=== PATIENT | female | born 1955 | race Two or more races ===

== ENCOUNTER 2017-12-29 13:23 | Outpatient (CLI) | payer OTHER ==
[~2017-12-29 13:23] MED LIST: DURICEF 500 MG CAPSULE PO; EMETROL; NORFLEX100 MG; OMEGA-31000 MG; OXYC1TAB9 PO; PREVACID15 MG; SINGULAIR10 MG PO
== END 2017-12-29 13:35 | disposition home or self-care (01) ==
LOC: LAB 13:23 → MAMO-SONO 01-06 07:45
DX: R31.0 Gross hematuria (principal)

== ENCOUNTER 2018-02-10 08:23 | Outpatient (CLI) | payer OTHER | END 2018-02-10 08:43 | disposition home or self-care (01) | LOC: MRI 08:23 | DX: M51.9 Unspecified thoracic, thoracolumbar and lumbosacral intervertebral disc disorder (principal) | CPT/HCPCS: 72148 ==

== ENCOUNTER 2018-04-18 07:22 | Outpatient (CLI) | payer OTHER | END 2018-04-18 07:32 | disposition home or self-care (01) | LOC: TOM 07:22 | DX: R10.84 Generalized abdominal pain (principal) ==

== ENCOUNTER → 2018-04-28 | Outpatient (CLI) | payer OTHER | END | disposition home or self-care (01) | LOC: NUCLEAR 09:53 | DX: M81.0 Age-related osteoporosis without current pathological fracture (principal) ==

== ENCOUNTER → 2018-05-05 06:45 | Outpatient (CLI) | payer OTHER | END | disposition home or self-care (01) | LOC: LAB 06:45 | DX: E03.8 Other specified hypothyroidism (principal); R10.13 Epigastric pain; I11.9 Hypertensive heart disease without heart failure; E78.2 Mixed hyperlipidemia ==

== ENCOUNTER → 2018-06-14 | Outpatient (CLI) | payer OTHER | END | disposition home or self-care (01) | LOC: SONOGRAMA 07:12 → MAMO-SONO 08:15 | DX: M25.562 Pain in left knee (principal); S46.001A Unspecified injury of muscle(s) and tendon(s) of the rotator cuff of right shoulder, initial encounter; M50.80 Other cervical disc disorders, unspecified cervical region ==

== ENCOUNTER 2018-10-17 08:19 | Outpatient (CLI) | payer OTHER | END 2018-10-17 08:24 | disposition home or self-care (01) | LOC: LAB 08:19 | DX: D46.4 Refractory anemia, unspecified (principal); D63.1 Anemia in chronic kidney disease; D50.8 Other iron deficiency anemias ==

== ENCOUNTER 2019-03-20 08:37 | Outpatient (CLI) | payer OTHER | END 2019-03-20 08:38 | disposition home or self-care (01) | LOC: NUCLEAR 08:37 | DX: E03.8 Other specified hypothyroidism (principal) | CPT/HCPCS: 78012; A9531 ==

== ENCOUNTER 2019-03-21 07:27 | Outpatient (CLI) | payer OTHER | END 2019-03-21 09:10 | disposition home or self-care (01) | LOC: MRI 07:27 | DX: M51.9 Unspecified thoracic, thoracolumbar and lumbosacral intervertebral disc disorder (principal); M17.9 Osteoarthritis of knee, unspecified | CPT/HCPCS: 72148 ==

== ENCOUNTER 2019-03-21 10:37 | Outpatient (CLI) | payer OTHER | END 2019-03-21 10:40 | disposition home or self-care (01) | LOC: SONOGRAMA 10:37 | DX: E05.80 Other thyrotoxicosis without thyrotoxic crisis or storm (principal) ==

== ENCOUNTER 2020-02-07 07:18 | Outpatient (CLI) | payer OTHER | END 2020-02-07 07:23 | disposition home or self-care (01) | LOC: RAD 07:18 | PROVIDERS: ATTEND Orthopaedic Surgery Sports Medicine | DX: M17.12 Unilateral primary osteoarthritis, left knee (principal); M18.2 Bilateral post-traumatic osteoarthritis of first carpometacarpal joints ==

== ENCOUNTER 2020-02-14 08:58 | Inpatient (IN) | payer OTHER ==
[~2020-02-14] VITALS: Ht 154.9 cm; Wt 71.2 kg
[2020-02-14] MEDS ORDERED: [UNRECOGNIZED DRUG - OTHER] (09:42)
[2020-02-14] MEDS ORDERED: DIOVAN HCT 1601 EACH (09:42)
[2020-02-14] MEDS ORDERED: GLIMEPIRIDE4 MG (09:43)
[2020-02-14] MEDS ORDERED: PEPCID AC10 MG (09:44)
[2020-02-14] MEDS ORDERED: ADVIAR (09:46)
[2020-02-14] MEDS ORDERED: SINGULAIR 10MG10 MG (09:46)
[2020-02-14] MEDS ORDERED: [UNRECOGNIZED DRUG - OTHER] (09:47)
== END 2020-02-16 12:56 | disposition home or self-care (01) | DRG 812 ==
LOC: ER 08:58 → MEDJ 18:00
PROVIDERS: ADMIT Internal Medicine Cardiovascular Disease; ATTEND Internal Medicine Cardiovascular Disease
PROC: 30233N1 Transfusion of Nonautologous Red Blood Cells into Peripheral Vein, Percutaneous Approach (ICD-10-PCS; principal; 2020-02-14)
PROC: 3E0F7GC Introduction of Other Therapeutic Substance into Respiratory Tract, Via Natural or Artificial Opening (ICD-10-PCS; 2020-02-14)
DX: D64.9 Anemia, unspecified (principal); J45.42 Moderate persistent asthma with status asthmaticus; Z79.52 Long term (current) use of systemic steroids

== ENCOUNTER 2020-03-05 08:20 | Outpatient (CLI) | payer OTHER ==
[~2020-03-05 08:20] MED LIST changes: +ADVIAR; +DIOVAN HCT 1601 EACH; +GLIMEPIRIDE4 MG; +PEPCID AC10 MG; +SINGULAIR 10MG10 MG; +[UNRECOGNIZED DRUG - OTHER]; +[UNRECOGNIZED DRUG - OTHER]
== END 2020-03-05 08:22 | disposition home or self-care (01) ==
LOC: RAD 08:20 → MAMO-SONO 09:45
PROVIDERS: ATTEND Internal Medicine Hematology & Oncology
DX: D50.8 Other iron deficiency anemias (principal)

== ENCOUNTER 2020-04-30 07:29 | Outpatient (CLI) | payer OTHER | END 2020-04-30 07:38 | disposition home or self-care (01) | LOC: MAMO-SONO 07:29 | PROVIDERS: ATTEND Internal Medicine Hematology & Oncology | DX: Z12.31 Encounter for screening mammogram for malignant neoplasm of breast (principal); N64.59 Other signs and symptoms in breast ==

== ENCOUNTER → 2020-07-10 08:16 | Outpatient (CLI) | payer OTHER | END | disposition home or self-care (01) | LOC: LAB 08:16 | PROVIDERS: ATTEND Internal Medicine Hematology & Oncology | DX: N39.0 Urinary tract infection, site not specified (principal); B96.29 Other Escherichia coli [E. coli] as the cause of diseases classified elsewhere; D50.8 Other iron deficiency anemias; I10 Essential (primary) hypertension; R74.02 Elevation of levels of lactic acid dehydrogenase [LDH]; D63.8 Anemia in other chronic diseases classified elsewhere; D55.0 Anemia due to glucose-6-phosphate dehydrogenase [G6PD] deficiency; D51.1 Vitamin B12 deficiency anemia due to selective vitamin B12 malabsorption with proteinuria; D51.0 Vitamin B12 deficiency anemia due to intrinsic factor deficiency; E03.8 Other specified hypothyroidism; R97.0 Elevated carcinoembryonic antigen [CEA]; R97.8 Other abnormal tumor markers; E06.3 Autoimmune thyroiditis; D51.3 Other dietary vitamin B12 deficiency anemia; E11.9 Type 2 diabetes mellitus without complications; D63.1 Anemia in chronic kidney disease ==

== ENCOUNTER → 2020-08-11 | Outpatient (CLI) | payer OTHER | END | disposition home or self-care (01) | LOC: MAMO-SONO 07:15 → SONOGRAMA 07:48 | PROVIDERS: ATTEND Specialist | DX: R10.2 Pelvic and perineal pain (principal); R10.31 Right lower quadrant pain ==

== ENCOUNTER 2020-08-13 11:53 | Outpatient (CLI) | payer OTHER | END 2020-08-13 12:05 | disposition HB | LOC: RAD 11:53 | PROVIDERS: ATTEND Internal Medicine Rheumatology | DX: M51.87 Other intervertebral disc disorders, lumbosacral region (principal) ==

== ENCOUNTER 2020-09-01 08:07 | Outpatient (CLI) | payer OTHER | END 2020-09-01 09:00 | disposition home or self-care (01) | LOC: MRI 08:07 | PROVIDERS: ATTEND Anesthesiology | DX: M48.07 Spinal stenosis, lumbosacral region (principal); M17.12 Unilateral primary osteoarthritis, left knee; M51.36 Other intervertebral disc degeneration, lumbar region; M23.207 Derangement of unspecified meniscus due to old tear or injury, left knee | CPT/HCPCS: 72148; 73721 ==

== ENCOUNTER → 2020-09-09 08:55 | Outpatient (CLI) | payer OTHER | END | disposition home or self-care (01) | LOC: LAB 08:55 → EKG 08:55 | PROVIDERS: ATTEND Anesthesiology | DX: I10 Essential (primary) hypertension (principal); M54.6 Pain in thoracic spine ==

== ENCOUNTER 2020-09-09 12:24 | Outpatient (CLI) | payer OTHER | END 2020-09-09 12:31 | disposition home or self-care (01) | LOC: RAD 12:24 | PROVIDERS: ATTEND Anesthesiology | DX: I10 Essential (primary) hypertension (principal); M54.6 Pain in thoracic spine ==

== ENCOUNTER → 2020-09-10 09:22 | Outpatient (CLI) | payer OTHER | END | disposition home or self-care (01) | LOC: LAB 09:22 | PROVIDERS: ATTEND Anesthesiology | DX: R05 Cough (principal); Z20.828 Contact with and (suspected) exposure to other viral communicable diseases; I10 Essential (primary) hypertension; M54.5 Low back pain; D68.8 Other specified coagulation defects; D50.8 Other iron deficiency anemias; N39.0 Urinary tract infection, site not specified ==

== ENCOUNTER 2021-02-20 13:48 | Outpatient (CLI) | payer OTHER | END 2021-02-20 13:50 | disposition home or self-care (01) | LOC: NUCLEAR 13:48 | PROVIDERS: ATTEND Internal Medicine Rheumatology | DX: M81.0 Age-related osteoporosis without current pathological fracture (principal) ==

== ENCOUNTER 2022-02-02 07:31 | Outpatient (CLI) | payer OTHER ==
[~2022-02-02 07:31] MED LIST changes: +NABUMETONE750 MG PO
== END 2022-02-02 07:34 | disposition home or self-care (01) ==
LOC: RAD 07:31
PROVIDERS: ATTEND Orthopaedic Surgery Sports Medicine
DX: M17.12 Unilateral primary osteoarthritis, left knee (principal)

== ENCOUNTER 2022-05-27 12:47 | Outpatient (CLI) | payer OTHER | END 2022-05-27 12:50 | disposition home or self-care (01) | LOC: MRI 12:47 | PROVIDERS: ATTEND Anesthesiology | DX: G43.711 Chronic migraine without aura, intractable, with status migrainosus (principal) | CPT/HCPCS: 72141 ==

== ENCOUNTER 2022-10-14 11:19 | Outpatient (CLI) | payer OTHER | END 2022-10-14 11:34 | disposition home or self-care (01) | LOC: RAD 11:19 | PROVIDERS: ATTEND Anesthesiology | DX: M51.36 Other intervertebral disc degeneration, lumbar region (principal); M75.100 Unspecified rotator cuff tear or rupture of unspecified shoulder, not specified as traumatic; M17.11 Unilateral primary osteoarthritis, right knee | CPT/HCPCS: 72148; 73221 ==

== ENCOUNTER 2023-01-20 10:17 | Outpatient (CLI) | payer OTHER | END 2023-01-20 10:20 | disposition home or self-care (01) | LOC: RAD 10:17 | PROVIDERS: ATTEND Internal Medicine Rheumatology | DX: M16.9 Osteoarthritis of hip, unspecified (principal) ==

== ENCOUNTER 2023-02-10 12:04 | Outpatient (CLI) | payer OTHER | END 2023-02-10 12:48 | disposition home or self-care (01) | LOC: TOM 12:04 | PROVIDERS: ATTEND Psychiatry & Neurology Neurology | DX: G44.229 Chronic tension-type headache, not intractable (principal); M81.0 Age-related osteoporosis without current pathological fracture ==

== ENCOUNTER 2023-04-13 07:29 | Outpatient (CLI) | payer OTHER | END 2023-04-13 07:38 | disposition home or self-care (01) | LOC: MRI 07:29 | PROVIDERS: ATTEND Anesthesiology | DX: M54.59 Other low back pain (principal); M51.36 Other intervertebral disc degeneration, lumbar region; M79.661 Pain in right lower leg | CPT/HCPCS: 72148 ==

== ENCOUNTER 2023-07-13 10:10 | Outpatient (CLI) | payer OTHER | END 2023-07-13 10:17 | disposition home or self-care (01) | LOC: TOM 10:10 | PROVIDERS: ATTEND Internal Medicine Pulmonary Disease | DX: S09.90XA Unspecified injury of head, initial encounter (principal); Z88.8 Allergy status to other drugs, medicaments and biological substances; Z91.018 Allergy to other foods ==

== ENCOUNTER 2023-11-02 08:21 | Outpatient (CLI) | payer OTHER | END 2023-11-02 08:28 | disposition home or self-care (01) | LOC: SONOGRAMA 08:21 | PROVIDERS: ATTEND Internal Medicine Gastroenterology | DX: R10.9 Unspecified abdominal pain (principal); E03.9 Hypothyroidism, unspecified ==

== ENCOUNTER 2023-11-09 12:40 | Outpatient (CLI) | payer OTHER | END 2023-11-09 12:46 | disposition home or self-care (01) | LOC: RAD 12:40 | PROVIDERS: ATTEND Internal Medicine Cardiovascular Disease | DX: M12.9 Arthropathy, unspecified (principal) ==

== ENCOUNTER 2024-04-11 10:26 | Outpatient (CLI) | payer OTHER | END 2024-04-11 10:35 | disposition home or self-care (01) | LOC: MRI 10:26 | PROVIDERS: ATTEND Internal Medicine Rheumatology | DX: M51.9 Unspecified thoracic, thoracolumbar and lumbosacral intervertebral disc disorder (principal) | CPT/HCPCS: 72148 ==

== ENCOUNTER 2024-08-13 09:39 | Outpatient (CLI) | payer OTHER | END 2024-08-13 09:44 | disposition home or self-care (01) | LOC: RAD 09:39 | PROVIDERS: ATTEND Specialist | DX: R07.9 Chest pain, unspecified (principal); R06.02 Shortness of breath ==

== ENCOUNTER 2024-12-21 12:02 | Outpatient (CLI) | payer OTHER | END 2024-12-21 12:16 | disposition home or self-care (01) | LOC: MRI 12:02 | PROVIDERS: ATTEND Internal Medicine Cardiovascular Disease | DX: R10.9 Unspecified abdominal pain (principal); G44.229 Chronic tension-type headache, not intractable; M81.0 Age-related osteoporosis without current pathological fracture | CPT/HCPCS: 70551; 72141 ==

== ENCOUNTER 2025-07-04 09:28 | Outpatient (CLI) | payer OTHER | END 2025-07-04 09:36 | disposition home or self-care (01) | LOC: RAD 09:28 | PROVIDERS: ATTEND Internal Medicine Cardiovascular Disease | DX: M19.90 Unspecified osteoarthritis, unspecified site (principal) ==

== ENCOUNTER 2025-07-25 07:06 | Outpatient (CLI) | payer OTHER | END 2025-07-25 07:18 | disposition home or self-care (01) | LOC: MRI 07:06 | PROVIDERS: ATTEND Orthopaedic Surgery Sports Medicine | DX: M54.51 Vertebrogenic low back pain (principal); E04.2 Nontoxic multinodular goiter | CPT/HCPCS: 72148 ==

== ENCOUNTER 2025-07-25 09:46 | Outpatient (CLI) | payer OTHER | END 2025-07-25 09:47 | disposition home or self-care (01) | LOC: NUCLEAR 09:46 | PROVIDERS: ATTEND Internal Medicine Rheumatology | DX: M81.0 Age-related osteoporosis without current pathological fracture (principal) ==

== ENCOUNTER 2025-08-01 13:38 | Outpatient (CLI) | payer OTHER | END 2025-08-01 13:40 | disposition home or self-care (01) | LOC: MAMO-SONO 13:38 | PROVIDERS: ATTEND Internal Medicine Cardiovascular Disease | DX: N60.11 Diffuse cystic mastopathy of right breast (principal); N60.12 Diffuse cystic mastopathy of left breast; Z12.31 Encounter for screening mammogram for malignant neoplasm of breast ==